=== PATIENT | male | born 1975 | race Caucasian/White ===

== ENCOUNTER 2017-05-26 06:02 | Emergency (ER) | payer BC ==
[~2017-05-26] VITALS: Ht 175.3 cm; Wt 85.0 kg
[2017-05-26 06:05] VITALS: BP 164/107; PULSE 63; RESP 20; TEMP 98; O2SAT 99
[2017-05-26] MEDS ORDERED: VITA250T3 PO (06:07)
[2017-05-26] MEDS ORDERED: MULTTAB67 PO (06:07)
[2017-05-26 06:11] VITALS: BP 141/95; PULSE 66; RESP 20; TEMP 98; O2SAT 99
[2017-05-26] MEDS ORDERED: SODIUM CHLORIDE 0.9% FLUSH 10 ML FLUSH IV FLUSH PRN (06:15)
[2017-05-26] MEDS ORDERED: KETOROLAC TROMETHAMINE 30 MG/ML (IVP) VIAL IVP ONE (06:15)
[2017-05-26] MEDS ORDERED: ONDANSETRON HCL 4 MG/2 ML VIAL IVP ONE (06:15)
[2017-05-26 06:27] LABS: AUTOMATED NEUTROPHIL # 6.4 TH/MM3 (1.8-7.7); BASOPHIL % 0.5 % (0.0-2.0); EOSINOPHIL # 0.2 TH/MM3 (0-0.4); EOSINOPHIL % 2.4 % (0.0-4.0); HEMATOCRIT 45.9 % (39.0-51.0); HEMOGLOBIN 15.6 GM/DL (13.0-17.0); LYMPH % 21.9 % (9.0-44.0); LYMPHOCYTE # 2.1 TH/MM3 (1.0-4.8); MEAN CELL VOLUME 87.9 FL (80.0-100.0); MEAN CORPUSCULAR HEMOGLOBIN 29.8 PG (27.0-34.0); MEAN CORPUSCULAR HGB CONC 33.9 % (32.0-36.0); MEAN PLATELET VOLUME 8.9 FL (7.0-11.0); MONO % 6.8 % (0.0-8.0); MONOCYTE # 0.6 TH/MM3 (0-0.9); NEUT % 68.4 % (16.0-70.0); PLATELET COUNT 178 TH/MM3 (150-450); RED BLOOD COUNT 5.22 MIL/MM3 (4.50-5.90); RED CELL DISTRIBUTION WIDTH 12.3 % (11.6-17.2); WHITE BLOOD COUNT 9.4 TH/MM3 (4.0-11.0)
[2017-05-26] MEDS: SODIUM CHLOR 0.9% 1000 ML INJ 1,000 ML IV SCH ×2 (06:32→07:50)
[2017-05-26] MEDS ORDERED: IBUP-232 PO (06:36)
[2017-05-26] MEDS ORDERED: TRAM50 PO (06:36)
[2017-05-26] MEDS ORDERED: TAMS5CAP PO (06:36)
--- NOTE | 2017-05-26 06:36 | PD ---
HPI . Left flank pain Chief Complaint: Flank/Kidney Pain Time Seen by Provider: 06:11 Travel History International Travel<30 days: No Contact w/Intl Traveler<30days: No Traveled to known affect area: No History of Present Illness HPI 41-year-old male with no significant past medical history complains of sudden onset left flank pain radiating around to the front, that is intermittent, sharp and severe. Patient notes nausea with same. Patient denies any vomiting , denies any fever. Patient has no prior history of kidney stones. Denies hematuria PFSH Past Medical History Narrative Medical Patient has no significant past medical history Medical History: Denies Significant Hx Immunizations Current: Yes Tetanus Vaccination: Unknown Influenza Vaccination: No Past Surgical History Abdominal Surgery: Yes (hernia repair) Tonsillectomy: Yes Social History Alcohol Use: Yes (occasionally) Tobacco Use: No Substance Use: No Allergies-Medications (Allergen,Severity, Reaction): Coded Allergies: Penicillins (Verified Allergy, Intermediate, 05/26/17) Reported Meds & Prescriptions Reported Meds & Active Scripts Active Ultram (Tramadol HCl) 50 Mg Tab 50 Mg PO Q8H PRN Flomax (Tamsulosin HCl) 0.4 Mg Cap 0.4 Mg PO HS Ibuprofen 600 Mg Tab 600 Mg PO Q8H PRN Reported Vitamin C (Ascorbic Acid) 250 Mg Tab 250 Mg PO DAILY Multiple Vitamin 1 Tab 1 Tab PO DAILY Narrative Medication Allergies and medications reviewed Review of Systems General / Constitutional: No: Fever Eyes: No: Visual changes HENT: No: Headaches Cardiovascular: No: Chest Pain or Discomfort Respiratory: No: Shortness of Breath Gastrointestinal: Positive: Nausea, Abdominal Pain, No: Vomiting Genitourinary: Positive: Flank Pain, No: Urgency, Frequency, Dysuria, Hematuria Musculoskeletal: No: Pain Skin: No Rash Neurologic: No: Weakness Psychiatric: No: Depression Endocrine: No: Polydipsia Hematologic/Lymphatic: No: Easy Bruising Physical Exam Narrative GENERAL: Awake and alert, oriented 3, mild distress secondary to discomfort. SKIN: Warm and dry. Color is pale some diaphoresis no cyanosis HEAD: Atraumatic. Normocephalic. EYES: Pupils equal and round. No scleral icterus. No injection or drainage. ENT: No nasal bleeding or discharge. Mucous membranes pink and moist. NECK: Trachea midline. No JVD. Supple full range of motion CARDIOVASCULAR: Regular rate and rhythm. RESPIRATORY: No accessory muscle use. Clear to auscultation. Breath sounds equal bilaterally. GASTROINTESTINAL: Abdomen soft, non-tender, nondistended. Hepatic and splenic margins not palpable. No CVA tenderness MUSCULOSKELETAL: Extremities without clubbing, cyanosis, or edema. No obvious deformities. NEUROLOGICAL: Awake and alert. No obvious cranial nerve deficits. Motor grossly within normal limits. Five out of 5 muscle strength in the arms and legs. Normal speech. PSYCHIATRIC: Appropriate mood and affect; insight and judgment normal. Data Data Last Documented VS Vital Signs Date Time Temp Pulse Resp B/P (MAP) Pulse Ox O2 Delivery O2 Flow Rate FiO2 05/26/17 06:11 98.0 66 20 141/95 (110) 99 Room Air Orders Orders Complete Blood Count With Diff (05/26/17 06:12) Comprehensive Metabolic Panel (05/26/17 06:12) Urinalysis - C+S If Indicated (05/26/17 06:12) Ct Abd/Pel W/O Iv Contrast (05/26/17 06:12) Iv Access Insert/Monitor (05/26/17 06:12) Ondansetron Inj (Zofran Inj) (05/26/17 06:15) Sodium Chlor 0.9% 1000 Ml Inj (Ns 1000 M (05/26/17 06:12) Sodium Chloride 0.9% Flush (Ns Flush) (05/26/17 06:15) Ketorolac Inj (Toradol Inj) (05/26/17 06:15) Tamsulosin (Flomax) (05/26/17 06:45) Labs Laboratory Tests Test 05/26/17 06:15 White Blood Count 9.4 TH/MM3 Red Blood Count 5.22 MIL/MM3 Hemoglobin 15.6 GM/DL Hematocrit 45.9 % Mean Corpuscular Volume 87.9 FL Mean Corpuscular Hemoglobin 29.8 PG Mean Corpuscular Hemoglobin Concent 33.9 % Red Cell Distribution Width 12.3 % Platelet Count 178 TH/MM3 Mean Platelet Volume 8.9 FL Neutrophils (%) (Auto) 68.4 % Lymphocytes (%) (Auto) 21.9 % Monocytes (%) (Auto) 6.8 % Eosinophils (%) (Auto) 2.4 % Basophils (%) (Auto) 0.5 % Neutrophils # (Auto) 6.4 TH/MM3 Lymphocytes # (Auto) 2.1 TH/MM3 Monocytes # (Auto) 0.6 TH/MM3 Eosinophils # (Auto) 0.2 TH/MM3 Basophils # (Auto) 0.0 TH/MM3 CBC Comment DIFF FINAL Differential Comment Blood Urea Nitrogen 16 MG/DL Creatinine 1.21 MG/DL Random Glucose 121 MG/DL Total Protein 7.5 GM/DL Albumin 4.0 GM/DL Calcium Level 9.0 MG/DL Alkaline Phosphatase 98 U/L Aspartate Amino Transf (AST/SGOT) 27 U/L Alanine Aminotransferase (ALT/SGPT) 49 U/L Total Bilirubin 0.3 MG/DL Sodium Level 138 MEQ/L Potassium Level 3.9 MEQ/L Chloride Level 105 MEQ/L Carbon Dioxide Level 26.1 MEQ/L Anion Gap 7 MEQ/L Estimat Glomerular Filtration Rate 66 ML/MIN MDM Medical Decision Making Medical Screen Exam Complete: Yes Emergency Medical Condition: Yes Medical Record Reviewed: Yes Differential Diagnosis Renal colic, kidney stone, pyelonephritis Narrative Course Patient presented from EMS with IV established and had received 6 mg morphine in the field patient's pain went from 10-6 out of 10. Patient received IV Toradol here with IV fluids and antiemetics. CT abdomen and pelvis ED wet read patient has mild hydronephrosis and hydroureter proximally with a 4 mm stone in the mid proximal ureter. Diagnosis Primary Impression: Kidney stones Additional Impression: Renal colic on left side Referrals: Timmy Garay MD Patient Instructions: General Instructions, Kidney Stones (ED), Renal Colic (ED ) Additional Instructions: Pain medications as prescribed as needed. Flomax 0.4 mg daily for urine flow. Follow-up with urology. Return promptly for worsening Scripts Tramadol (Ultram) 50 Mg Tab 50 MG PO Q8H Y for PAIN, #20 TAB 0 Refills Prov: Hayes Mahmood MD 05/26/17 Tamsulosin (Flomax) 0.4 Mg Cap 0.4 MG PO HS for Manage Prostate Problems, #10 CAP 0 Refills Prov: Hayes Mahmood MD 05/26/17 Ibuprofen (Ibuprofen) 600 Mg Tab 600 MG PO Q8H Y for PAIN, #15 TAB 0 Refills Prov: Hayes Mahmood MD 05/26/17 Disposition: 01 DISCHARGE HOME Condition: Stable Unkenholz,Hayes Glenn MD May 26, 2017 06:36
[2017-05-26] MEDS ORDERED: TAMSULOSIN HCL 0.4 MG CAP PO ONE (06:45)
--- NOTE | 2017-05-26 06:48 | RADRPT ---
EXAM DATE/TIME: 05/26/2017 06:20 [facility] COMPARISON: No previous studies available for comparison. INDICATIONS : Left flank pain; possible renal calculi. ORAL CONTRAST: No oral contrast ingested. RADIATION DOSE: 10.57 CTDIvol (mGy) MEDICAL HISTORY : None SURGICAL HISTORY : None. ENCOUNTER: Initial ACUITY: 1 day PAIN SCALE: 8/10 LOCATION: Left flank TECHNIQUE: Volumetric scanning of the abdomen and pelvis was performed. Using automated exposure control and ad justment of the mA and/or kV according to patient size, radiation dose was kept as low as reasonably achievable to obtain optimal diagnostic quality images. DICOM format image data is available electro nically for review and comparison. FINDINGS: LOWER LUNGS: The visualized lower lungs are clear. LIVER: Homogeneous density without lesion. There is no dilation of the biliary tree. No calcified gallston es. SPLEEN: Normal size without lesion. PANCREAS: Within normal limits. KIDNEYS: 6 mm x 4 mm x 4 mm calculus in the proximal left ureter anterior row pelvic junction. Mild left hydro nephrosis. Perinephric stranding noted on the left. 2 calculi are identified in the upper pole of the left kidney measuring 1-2 mm each. 2 mm calculus is seen in the midpole of the left kidney. No right -sided renal or ureteral calculi identified. No hydronephrosis on the right. ADRENAL GLANDS: Within normal limits. VASCULAR: There is no aortic aneurysm. BOWEL/MESENTERY: The stomach, small bowel, and colon demonstrate no acute abnormality. There is no free small hiatal hernia. No evidence of bowel dilatation. No free air or free fluid. Appendix within normal limits. RETROPERITONEUM: There is no lymphadenopathy. BLADDER: No wall thickening or mass. REPRODUCTIVE: Within normal limits. INGUINAL: There is no lymphadenopathy or hernia. MUSCULOSKELETAL: Within normal limits for patient age. CONCLUSION: 1. 6 mm x 4 mm calculus at the left ureteropelvic junction with mild left hydronephrosis. 2. Multiple punctate left renal calculi. 3. Small hiatal hernia. Rivera Byrd MD on May 26, 2017 at 6:42 Board Certified Radiologist. This report was verified electronically.
[2017-05-26 06:49] LABS: ALKALINE PHOSPHATASE 98 U/L (45-117); TOTAL BILIRUBIN ADULT 0.3 MG/DL (0.2-1.0); TOTAL PROTEIN 7.5 GM/DL (6.4-8.2)
[2017-05-26 07:00] LABS: ALT (GPT) 49 U/L (12-78); AST (GOT) 27 U/L (15-37); BICARBONATE 26.1 MEQ/L (21.0-32.0); BLOOD UREA NITROGEN 16 MG/DL (7-18); CHLORIDE 105 MEQ/L (98-107); CREATININE 1.21 MG/DL (0.60-1.30); GLOMERULAR FILTRATION RATE 66 ML/MIN (>89); GLUCOSE,RANDOM 121 MG/DL (74-106); SODIUM (NA) 138 MEQ/L (136-145)
[2017-05-26] MEDS ORDERED: HYDROmorphone HCL PF 2 MG/ML VIAL IV PUSH ONE (07:45)
[2017-05-26] MEDS ORDERED: SODIUM CHLOR 0.9% 1000 ML INJ 1,000 ML IV ONE (08:00)
[2017-05-26 08:20] VITALS: RESP 16
[2017-05-26 08:49] VITALS: BP 135/62
== END 2017-05-26 08:50 | disposition home or self-care (01) ==
LOC: NEPE 06:02
DX: N13.2 Hydronephrosis with renal and ureteral calculous obstruction (principal); K44.9 Diaphragmatic hernia without obstruction or gangrene; Z79.899 Other long term (current) drug therapy; Z88.0 Allergy status to penicillin
CPT/HCPCS: 74176; 80053; 85025; 96361; 96374; 96375; 99285; J1170; J1885; J2405; J7030